=== PATIENT | male | born 1950 | race Caucasian/White ===

== ENCOUNTER → 2022-07-07 | Outpatient (CLI) | payer MEDICARE, OTHER | LOC: NM 08:42 | PROVIDERS: ATTEND Emergency Medicine | DX: R93.89 Abnormal findings on diagnostic imaging of other specified body structures (principal) | CPT/HCPCS: 78306; A9503 ==

== ENCOUNTER → 2025-01-22 | Outpatient (REF) | payer MEDICARE, OTHER | LOC: DX 13:39 | PROVIDERS: ATTEND Emergency Medicine | DX: Z13.820 Encounter for screening for osteoporosis (principal) | CPT/HCPCS: 77080 ==